=== PATIENT | male | born 1960 | race Caucasian/White ===

== ENCOUNTER 2018-12-20 22:30 | Emergency (ER) | payer BC ==
[~2018-12-20] VITALS: Ht 175.3 cm; Wt 93.0 kg
[2018-12-20 22:42] VITALS: BP_SYST 138
--- NOTE | 2018-12-20 22:47 | NUR ---
Patient triaged and placed in waiting room. VSS and patient appears in no acute distress at this time. Accompanied by self, awaiting available bed, and MD notified of need for MSE.
--- NOTE | 2018-12-21 02:20 | NUR ---
Patient to ER bed 05 for evaluation. Side rails up.
--- NOTE | 2018-12-21 02:30 | NUR ---
Pt C/O nausea, poor appetite, difficulty sleeping, body aches and sore throat x 4 days. Pt states he took Codiene with no relief. Pt states "I don't do well with viral infections, I think thats what I have". Pt ambulatory and walked to bed without assistance. Denies any CP, SOB, congestion, episodes of vomiting. Will continue to monitor.
--- NOTE | 2018-12-21 03:10 | NUR ---
ER Dr. SHEFFIELD at bedside examining patient.
[2018-12-21] MEDS ORDERED: LORazepam 2 MG/ML VIAL IVP ONE (03:15)
[2018-12-21] MEDS ORDERED: ONDANSETRON HCL 4 MG/2 ML VIAL IVP ONE (03:15)
[2018-12-21] MEDS ORDERED: NACL 0.9% 1,000 ML IV ONE (03:15)
--- NOTE | 2018-12-21 03:15 | NUR ---
# 18 gauge angiocath placed to RT AC. Use of asceptic technique. Opsite placed over site. Blood return noted. Blood for lab drawn from site. Flushed with 10 cc of normal saline. No evidence of infiltration noted. Patient tolerated well.
[2018-12-21 03:32] LABS: BASOPHILS % (AUTO) 0.2 % (0.0-2.0); EOSINOPHILS % (AUTO) 0.1 % (0.0-4.0); HEMATOCRIT 43.3 % (36-54); HEMOGLOBIN 15.3 g/dL (14.0-18.0); LYMPHOCYTES # (AUTO) 1.3 K/uL (1.0-5.5); LYMPHOCYTES % (AUTO) 11.4 % (20.5-51.5); MEAN CORPUSCULAR HEMOGLOBIN 32 pg (27-31); MEAN CORPUSCULAR HGB CONC 35 % (32-36); MEAN CORPUSCULAR VOLUME 90 fL (79.0-98.0); MONOCYTES # (AUTO) 0.4 K/uL (0.0-1.0); MONOCYTES % (AUTO) 3.3 % (1.7-9.3); NEUTROPHILS # (AUTO) 9.7 K/uL (1.8-7.7); PLATELET COUNT (AUTO) 212 K/uL (130-430); RED BLOOD CELL COUNT(AUTO) 4.82 MIL/uL (4.2-6.2); RED CELL DISTRIBUTION WIDTH 12.8 % (9.0-15.0); WHITE BLOOD COUNT (AUTO) 11.4 K/uL (4.8-10.8)
[2018-12-21 03:50] LABS: CALCIUM 9.3 mg/dL (8.4-11.0); CREATININE 0.95 mg/dL (0.55-1.30); POTASSIUM 4.1 mmol/L (3.5-5.1)
[2018-12-21 03:56] LABS: ALBUMIN 4.3 g/dL (3.4-4.8); TOTAL BILIRUBIN 0.8 mg/dL (0.0-1.0)
[2018-12-21 04:46] VITALS: BP_SYST 124
--- NOTE | 2018-12-21 04:46 | NUR ---
Patient given written and verbal discharge instructions and verbalizes understanding. ER MD discussed with patient the results and treatment provided. Patient in stable condition. ID arm band removed. IV catheter removed intact and dressing applied, no active bleeding. Rx of Zithromax, Zithromax, and Ativan given. Patient educated on pain management and to follow up with PMD. Pain Scale 0. Opportunity for questions provided and answered. Medication side effect fact sheet provided.
== END 2018-12-21 04:46 | disposition home or self-care (01) ==
LOC: SED 22:30
DX: E86.0 Dehydration (principal); G47.00 Insomnia, unspecified; M79.7 Fibromyalgia; R11.10 Vomiting, unspecified; R05 Cough; Z88.1 Allergy status to other antibiotic agents
CPT/HCPCS: 36415; 80053; 82550; 85025; 96361; 96374; 96375; 99283; J2060; J2405; J7030